=== PATIENT | female | born 1985 | race Caucasian/White ===

== ENCOUNTER 2018-05-10 14:43 | Emergency (ER) | payer OTHER ==
[~2018-05-10] VITALS: Ht 165.1 cm; Wt 61.2 kg
[2018-05-10 15:22] LABS: *BILIRUBIN,URIN NEGATIVE (NEGATIVE); *CLARITY,URINE CLEAR (CLEAR); *COLOR,URINE YELLOW (YELLOW); *KETONES,URINE NEGATIVE (NEGATIVE); *URINE HCG, QUAL NEGATIVE (NEGATIVE); *UROBILINOGEN,URINE 0.2 E.U./dl (NORMAL); LEUKOCYTE ESTERASE ,URINE NEGATIVE (NEGATIVE); NITRITE, URINE NEGATIVE (NEGATIVE); UGLUCOSE NEGATIVE (NEGATIVE)
[2018-05-10 15:25] LABS: *BLOOD, URINE TRACE (NEGATIVE)
[2018-05-10 15:26] LABS: SQUAMOUS EPITHELIAL CELL,UR MODERATE /HPF (NONE SEEN); WBC,URINE 0-3 /HPF (0-3)
[2018-05-10 15:50] VITALS: BP 118/80
--- NOTE | 2018-05-10 15:50 | NUR ---
Patient discharged to home in stable conditon. Written and verbal after care instructions given. Patient verbalizes understanding of instructions. ALL BELONGINGS W/ PT. PT SELF-AMBULATED W/O DIFFICULTY.
== END 2018-05-10 15:50 | disposition home or self-care (01) ==
LOC: ER 14:43
DX: M54.5 Low back pain (principal)
CPT/HCPCS: 84703; A4663

== ENCOUNTER 2022-04-10 10:45 | Emergency (ER) | payer OTHER ==
[~2022-04-10] VITALS: Ht 170.2 cm; Wt 58.5 kg
[2022-04-10 11:06] LABS: *BILIRUBIN,URIN NEGATIVE (NEGATIVE); *BLOOD, URINE 3+ (NEGATIVE); *CLARITY,URINE CLOUDY (CLEAR); *COLOR,URINE YELLOW (YELLOW); *KETONES,URINE NEGATIVE (NEGATIVE); *UROBILINOGEN,URINE 0.2 E.U./dl (NORMAL); LEUKOCYTE ESTERASE ,URINE 1+ (NEGATIVE); NITRITE, URINE POSITIVE (NEGATIVE); PH,URINE 5.5 (5.0-8.0); UGLUCOSE NEGATIVE (NEGATIVE)
[2022-04-10 11:07] LABS: *URINE HCG, QUAL NEG (NEGATIVE)
[2022-04-10] MEDS ORDERED: CEPH500C2 PO (11:24)
[2022-04-10] MEDS ORDERED: PHEN-704 PO (11:24)
--- NOTE | 2022-04-10 11:25 | NUR ---
Pt arrived in ED w/ c/o dysuria, 10/12, started yesterday (04/09/22). Seen by Dr. Gillespie for MSE.
--- NOTE | 2022-04-10 11:40 | NUR ---
Patient discharged to home in stable condition. Written and verbal after care instructions given. Patient verbalizes understanding of instructions. Stressed follow up or return to ER for worsening s/s.
[2022-04-10 12:06] VITALS: BP 127/78
[2022-04-10 12:35] LABS: BACTERIA,URINE MANY /HPF (NONE SEEN); WBC,URINE 20-50 /HPF (0-3)
[2022-04-10 12:36] LABS: SQUAMOUS EPITHELIAL CELL,UR FEW /HPF (NONE SEEN)
== END 2022-04-10 11:40 | disposition home or self-care (01) ==
LOC: ER 10:45
DX: N30.01 Acute cystitis with hematuria (principal)
CPT/HCPCS: 84703; A4663

== ENCOUNTER 2023-12-07 09:34 | Emergency (ER) | payer MEDICAID, OTHER ==
[~2023-12-07] VITALS: Ht 170.2 cm; Wt 59.0 kg
[~2023-12-07 09:34] MED LIST: CEPH500C2 PO; PHEN-704 PO
[2023-12-07 09:37] VITALS: O2SAT 100
[2023-12-07 09:59] LABS: *BILIRUBIN,URIN NEGATIVE (NEGATIVE); *CLARITY,URINE CLEAR (CLEAR); *COLOR,URINE YELLOW (YELLOW); *KETONES,URINE NEGATIVE (NEGATIVE); *PROTEIN,URINE NEGATIVE (NEGATIVE); *UROBILINOGEN,URINE 0.2 E.U./dl (NORMAL); LEUKOCYTE ESTERASE ,URINE 1+ (NEGATIVE); NITRITE, URINE NEGATIVE (NEGATIVE); PH,URINE 6.5 (5.0-8.0); UGLUCOSE NEGATIVE (NEGATIVE)
[2023-12-07 10:02] LABS: *URINE HCG, QUAL NEGATIVE (NEGATIVE)
[2023-12-07 10:03] LABS: *BLOOD, URINE TRACE (NEGATIVE)
[2023-12-07 10:04] LABS: BACTERIA,URINE FEW /HPF (NONE SEEN); SQUAMOUS EPITHELIAL CELL,UR FEW /HPF (NONE SEEN); WBC,URINE 20-50 /HPF (0-3)
[2023-12-07] MEDS ORDERED: ONDANSETRON ODT 4 MG TAB.RAPDIS ONE (10:41)
[2023-12-07] MEDS: ONDANSETRON ODT 4 MG TAB.RAPDIS SL ONE (10:42)
[2023-12-07 10:46] LABS: CALCIUM 8.7 mg/dL (8.5-10.1); CREATININE 0.7 mg/dL (0.6-1.3); POTASSIUM 4.1 mmol/L (3.5-5.1)
[2023-12-07 10:50] LABS: BASOPHILS % (AUTO) 0.6 % (0.0-2.0); EOSINOPHILS # (AUTO) 0.1 K/uL (0.0-0.7); HEMATOCRIT 33.7 % (31.2-41.9); HEMOGLOBIN 11.8 g/dL (10.9-14.3); LYMPHOCYTES # (AUTO) 1.5 K/uL (0.8-4.8); LYMPHOCYTES % (AUTO) 20.1 % (20.5-51.5); MEAN CORPUSCULAR HEMOGLOBIN 30.6 uug (24.7-32.8); MEAN CORPUSCULAR HGB CONC 35 g/dL (32.3-35.6); MEAN CORPUSCULAR VOLUME 87.6 fL (75.5-95.3); MONOCYTES # (AUTO) 0.7 K/uL (0.1-1.30); MONOCYTES % (AUTO) 8.7 % (0.0-11.0); NEUTROPHILS # (AUTO) 5.3 K/uL (1.8-8.9); NEUTROPHILS % (AUTO) 69.6 % (38.5-71.5); PLATELET COUNT (AUTO) 292 K/uL (179-408); RED BLOOD CELL COUNT(AUTO) 3.85 MIL/uL (3.63-4.92); RED CELL DISTRIBUTION WIDTH 12.9 % (12.3-17.7); WHITE BLOOD COUNT (AUTO) 7.5 K/uL (3.8-11.8)
[2023-12-07 10:53] LABS: DIFFERENTIAL COMMENT 1
[2023-12-07] MEDS ORDERED: SULF1TAB48 PO (11:36)
== END 2023-12-07 11:52 | disposition home or self-care (01) ==
LOC: ER 09:34
DX: N39.0 Urinary tract infection, site not specified (principal); R10.2 Pelvic and perineal pain
CPT/HCPCS: 36415; 76856; 84703; 85025; A4606; A4663; Q0162

== ENCOUNTER 2023-12-24 16:20 | Emergency (ER) | payer MEDICAID ==
[~2023-12-24] VITALS: Ht 170.2 cm; Wt 59.0 kg
[~2023-12-24 16:20] MED LIST changes: +SULF1TAB48 PO
[2023-12-24 17:06] VITALS: O2SAT 100
== END 2023-12-24 18:00 | disposition left against medical advice (07) ==
LOC: ER 16:20
DX: R05.9 Cough, unspecified (principal); Z79.899 Other long term (current) drug therapy; Z53.21 Procedure and treatment not carried out due to patient leaving prior to being seen by health care provider
CPT/HCPCS: A4606; A4663